=== PATIENT | female | born 1965 | race Caucasian/White ===

== ENCOUNTER 2018-06-11 09:23 | Emergency (ER) | payer BC ==
[2018-06-11 09:56] LABS: Absolute Lymphocytes (CBC) 1.6 K/uL (0.7-4.9); Absolute Monocytes 0.7 K/uL (0.1-1.3); Absolute Neutrophil 6.7 K/uL (1.8-8.0); Basophils % 0.5 % (0-1.3); Hematocrit 37.5 % (36.0-45.0); Lymphocytes % 17.6 % (15.3-44.8); MPV 6.8 fL (7.6-11.3); Monocytes % 7.4 % (3.3-12.3); RBC Red Blood Cell Count 3.88 M/uL (3.86-4.86)
[2018-06-11] MEDS ORDERED: ASPIRIN 81 MG CHEWABLE TABLET ONE (10:00)
[2018-06-11] MEDS ORDERED: NA CHLORIDE 0.9% 1,000 ML ONE (10:00)
[2018-06-11 10:05] LABS: Protime INR 0.99
[2018-06-11 10:19] LABS: ALT/SGPT 43 U/L (12-78); AST/SGOT 19 U/L (15-37); Alkaline Phosphatase 91 U/L (45-117); BUN Blood Urea Nitrogen 13 mg/dL (7-18); Bicarbonate 28 mmol/L (21-32); Bilirubin Direct 0.2 mg/dL (0-0.2); Bilirubin Total 0.7 mg/dL (0.2-1.0); Glucose Level 112 mg/dL (74-106); Lipase 150 U/L (73-393); Magnesium 2.1 mg/dL (1.8-2.4); NT PRO-BNP 78 pg/mL (<125); Potassium 3.4 mmol/L (3.5-5.1); Protein, Total 7.3 g/dL (6.4-8.2); Sodium Level 140 mmol/L (136-145); Troponin (Emerg Dept Use Only) < 0.02 ng/mL (0.0-0.045)
--- NOTE | 2018-06-11 11:09 | RAD REPORT ---
EXAM DESCRIPTION: RAD - Chest Single View - 06/11/2018 10:02 am CLINICAL HISTORY: CHEST PAIN Chest pain. COMPARISON: No comparisons FINDINGS: Portable technique limits examination quality. The lungs are grossly clear. The heart is normal in size. No displaced fractures. IMPRESSION: No acute intrathoracic process suspected.
--- NOTE | 2018-06-11 11:13 | RAD REPORT ---
EXAM DESCRIPTION: CT - Chest For Pe Angio - 06/11/2018 10:55 am CLINICAL HISTORY: Chest pain. CHEST PAIN COMPARISON: No comparisons TECHNIQUE: CT angiogram of the pulmonary arteries was performed with MIP. All CT scans are performed using dose optimization technique as appropriate and may include automated exposure control or mA/KV adjustment according to patient size. FINDINGS: No evidence of pulmonary thromboembolism. No acute aortic finding demonstrated. Mild linear subsegmental atelectasis is present in both posterior lung bases. The lungs are otherwise clear. No significant pericardial or pleural fluid. No concerning bony finding. IMPRESSION: No evidence of pulmonary thromboembolism. No acute lung findings.
[2018-06-11] MEDS ORDERED: POTASSIUM 25 MEQ EFFERV TAB ONE (11:17)
--- NOTE | 2018-06-11 12:55 | ER ---
Nurse's Notes [facility] Name: Alyse Cho Age: 52 yrs Sex: Female : 1965 Arrival Date: 06/11/2018 Time: 09:25 Bed 14 Private MD: Roscoe Wadsworth B Diagnosis: Pleurisy;Chest pain, unspecified;Atelectasis;Hypokalemia Presentation: 06/11 09:27 Presenting complaint: Patient states: chest pain that woke her up around 0100 today. Pt aa5 c/o substernal chest pain and posterior chest pain. Pt states "i just don't want to take a deep breath because it hurts". Pt denies N/V. 09:27 Method Of Arrival: Ambulatory aa5 09:27 Transition of care: patient was not received from another setting of care. Onset of aa5 symptoms was June 11, 2018. Risk Assessment: Do you want to hurt yourself or someone else? Patient reports no desire to harm self or others. Initial Sepsis Screen: Does the patient meet any 2 criteria? No. Patient's initial sepsis screen is negative. Does the patient have a suspected source of infection? No. Patient's initial sepsis screen is negative. Care prior to arrival: None. 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 - Social history:: Smoking status: Patient/guardian denies using tobacco. - Ebola Screening: : No symptoms or risks identified at this time. - Family history:: not pertinent. Screenin:30 Abuse screen: Denies threats or abuse. Nutritional screening: No deficits noted. aa5 Tuberculosis screening: No symptoms or risk factors identified. Fall Risk None identified. Assessment: 09:30 General: Appears comfortable, Behavior is calm, cooperative. Pain: Complains of pain in aa5 mid-sternal area and posterior chest Pain does not radiate. Pain currently is 2 out of 10 on a pain scale. Quality of pain is described as pressure, Pain began today around 0100 Is continuous. Neuro: Level of Consciousness is awake, alert, obeys commands, Oriented to person, place, time, situation. Cardiovascular: Heart tones S1 S2 present Rhythm is regular. Respiratory: Airway is patent Respiratory effort is even, unlabored, Respiratory pattern is regular, symmetrical, Breath sounds are clear bilaterally. Denies cough, shortness of breath. GI: Patient currently denies nausea, vomiting. : No signs and/or symptoms were reported regarding the genitourinary system. EENT: No signs and/or symptoms were reported regarding the EENT system. Derm: Skin is pink, warm \\T\\ dry. Musculoskeletal: Range of motion: intact in all extremities. 09:54 Reassessment: Patient and/or family updated on plan of care and expected duration. Pain aa5 level reassessed. Patient is alert, oriented x 3, equal unlabored respirations, skin warm/dry/pink. Pt notified of wait time for lab and x-ray results. Pt sitting up in bed watching TV. Bed in low position, side rail x 1, and call peoples within reach . 11:00 Reassessment: Patient and/or family updated on plan of care and expected duration. Pain ls4 level reassessed. Patient is alert, oriented x 3, equal unlabored respirations, skin warm/dry/pink. 12:00 Reassessment: Patient and/or family updated on plan of care and expected duration. Pain ls4 level reassessed. Patient is alert, oriented x 3, equal unlabored respirations, skin warm/dry/pink. 12:53 Reassessment: Patient and/or family updated on plan of care and expected duration. Pain ls4 level reassessed. Patient is alert, oriented x 3, equal unlabored respirations, skin warm/dry/pink. Patient states symptoms have improved. Vital Signs: 09:30 BP 140 / 86; Pulse 85; Resp 16 S; Temp 98.4(TE); Pulse Ox 98% on R/A; Weight 83.46 kg aa5 (R); Height 5 ft. 3 in. (160.02 cm) (R); Pain 2/10; 11:11 BP 136 / 82; Pulse 84; Resp 16; Pulse Ox 99% on R/A; Pain 2/10; ls4 12:51 BP 125 / 89; Pulse 70; Resp 16; Temp 98.4(O); Pulse Ox 99% on R/A; Pain 2/10; ls4 09:30 Body Mass Index 32.59 (83.46 kg, 160.02 cm) aa5 ED Course: 09:25 Patient arrived in ED. mr 09:25 Roscoe Wadsworth MD is Private Physician. mr 09:28 Arm band placed on. aa5 09:28 Patient placed in an exam room, on a stretcher. aa5 09:28 Patient has correct armband on for positive identification. Placed in gown. Bed in low aa5 position. Call light in reach. Side rails up X2. youth nutritional monitor on. Pulse ox on. NIBP on. 09:30 Triage completed. aa5 09:32 Yulissa Martinez RN is Primary Nurse. aa5 09:36 Gilbert Walsh MD is Attending Physician. jenni 09:36 No provider procedures requiring assistance completed. Patient maintains SpO2 aa5 saturation greater than 95% on room air. 09:42 Radiology exam delayed due to lab results not completed at this time. (BUN/Creatinine). mw3 09:45 Initial lab(s) drawn, by mi, sent to lab. Inserted saline lock: 20 gauge in left aa5 antecubital area, using aseptic technique. Blood collected. 09:51 Urine collected: clean catch specimen, clear, EKG done, by ED staff, reviewed by Gilbert Walsh MD. 09:51 Urine Culture Sent. [facility] 09:57 Report given to SUMIT Holbrook. aa5 10:03 XRAY Chest (1 view) In Process Unspecified. EDMS 10:53 CT completed. Patient tolerated procedure well. Patient moved back from CT. mw3 10:56 CT Chest For PE Angio In Process Unspecified. EDMS 12:54 Roscoe Wadsworth MD is Referral Physician. jenni 13:36 IV discontinued, intact, bleeding controlled, No redness/swelling at site. Pressure iw dressing applied. Administered Medications: 09:53 Drug: Aspirin Chewable Tablet 324 mg Route: PO; aa5 10:15 Follow up: Response: No adverse reaction ls4 09:54 Drug: NS 0.9% 1000 ml Route: IV; Rate: 1 bolus; Site: left antecubital; aa5 11:00 Follow up: IV Status: Completed infusion; IV Intake: 1000ml ls4 11:13 Drug: Potassium Effervescent Tablet 25 mEq Route: PO; ls4 12:54 Follow up: Response: No adverse reaction; No change in condition ls4 Intake: 11:00 IV: 1000ml; Total: 1000ml. ls4 Outcome: 12:54 Discharge ordered by MD. arteaga 13:35 Discharged to home ambulatory. iw 13:35 Condition: good 13:35 Discharge instructions given to patient, Instructed on discharge instructions, follow up and referral plans. medication usage, Demonstrated understanding of instructions, follow-up care, medications, Prescriptions given X 3. 13:36 Patient left the ED. iw Signatures: Dispatcher [employer] Gilbert Chang MD MD cha Rivera, Mary mr Williams, Irene, RN RN iw Yulissa Martinez RN RN aa5 Smitha Hernández Michelle 3 Sheron Davis RN RN ls4
--- NOTE | 2018-06-11 12:55 | EDPHYS ---
Physician Documentation [facility] Name: Alyse Cho Age: 52 yrs Sex: Female : 1965 Arrival Date: 06/11/2018 Time: 09:25 Bed 14 Private MD: Roscoe Wadsworth B ED Physician Gilbert Walsh HPI: 06/11 11:17 This 52 yrs old Female presents to ER via Ambulatory with complaints of Chest jenni Pain. 11:17 The patient or guardian reports chest pain that is located primarily in the anterior jenni chest wall, left lateral posterior chest, right lateral posterior chest, right breast and left breast. Onset: 10 hour(s) ago. The pain radiates to Associated signs and symptoms: The patient has no apparent associated signs or symptoms. The chest pain is described as sharp. Modifying factors: The symptoms are alleviated by remaining still, rest, the symptoms are aggravated by deep breath. Severity of pain: At its worst the pain was moderate in the emergency department the pain has improved moderately. The patient has not experienced similar symptoms in the past. 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 - Social history:: Smoking status: Patient/guardian denies using tobacco. - Ebola Screening: : No symptoms or risks identified at this time. - Family history:: not pertinent. ROS: 11:17 Constitutional: Negative for fever, chills, and weight loss, Eyes: Negative for injury, jenni pain, redness, and discharge, ENT: Negative for injury, pain, and discharge, Neck: Negative for injury, pain, and swelling, Abdomen/GI: Negative for abdominal pain, nausea, vomiting, diarrhea, and constipation, Back: Negative for injury and pain, : Negative for injury, bleeding, discharge, and swelling, MS/Extremity: Negative for injury and deformity, Skin: Negative for injury, rash, and discoloration, Neuro: Negative for headache, weakness, numbness, tingling, and seizure, Psych: Negative for depression, anxiety, suicide ideation, homicidal ideation, and hallucinations, Allergy/Immunology: Negative for hives, rash, and allergies, Endocrine: Negative for neck swelling, polydipsia, polyuria, polyphagia, and marked weight changes, Hematologic/Lymphatic: Negative for swollen nodes, abnormal bleeding, and unusual bruising. 11:17 Cardiovascular: Positive for chest pain. 11:17 Respiratory: Positive for pleurisy, of the back and chest. Exam: 11:17 Constitutional: This is a well developed, well nourished patient who is awake, alert, jenni and in no acute distress. Head/Face: Normocephalic, atraumatic. Eyes: Pupils equal round and reactive to light, extra-ocular motions intact. Lids and lashes normal. Conjunctiva and sclera are non-icteric and not injected. Cornea within normal limits. Periorbital areas with no swelling, redness, or edema. ENT: Nares patent. No nasal discharge, no septal abnormalities noted. Tympanic membranes are normal and external auditory canals are clear. Oropharynx with no redness, swelling, or masses, exudates, or evidence of obstruction, uvula midline. Mucous membranes moist. Neck: Trachea midline, no thyromegaly or masses palpated, and no cervical lymphadenopathy. Supple, full range of motion without nuchal rigidity, or vertebral point tenderness. No Meningismus. Chest/axilla: Normal chest wall appearance and motion. Nontender with no deformity. No lesions are appreciated. Cardiovascular: Regular rate and rhythm with a normal S1 and S2. No gallops, murmurs, or rubs. Normal PMI, no JVD. No pulse deficits. Abdomen/GI: Soft, non-tender, with normal bowel sounds. No distension or tympany. No guarding or rebound. No evidence of tenderness throughout. Back: No spinal tenderness. No costovertebral tenderness. Full range of motion. Skin: Warm, dry with normal turgor. Normal color with no rashes, no lesions, and no evidence of cellulitis. MS/ Extremity: Pulses equal, no cyanosis. Neurovascular intact. Full, normal range of motion. Neuro: Awake and alert, GCS 15, oriented to person, place, time, and situation. Cranial nerves II-XII grossly intact. Motor strength 5/5 in all extremities. Sensory grossly intact. Cerebellar exam normal. Normal gait. 11:17 Respiratory: the patient does not display signs of respiratory distress, Respirations: normal, Breath sounds: are clear throughout, Respiratory rate: 16 Vital Signs: 09:30 BP 140 / 86; Pulse 85; Resp 16 S; Temp 98.4(TE); Pulse Ox 98% on R/A; Weight 83.46 kg aa5 (R); Height 5 ft. 3 in. (160.02 cm) (R); Pain 2/10; 11:11 BP 136 / 82; Pulse 84; Resp 16; Pulse Ox 99% on R/A; Pain 2/10; ls4 12:51 BP 125 / 89; Pulse 70; Resp 16; Temp 98.4(O); Pulse Ox 99% on R/A; Pain 2/10; ls4 09:30 Body Mass Index 32.59 (83.46 kg, 160.02 cm) aa5 MDM: 09:36 Patient medically screened. [facility] 11:17 Data reviewed: vital signs, nurses notes, lab test result(s), EKG, radiologic studies, [facility] CT scan, plain films. 06/11 09:38 Order name: Basic Metabolic Panel; Complete Time: 10:50 [facility] 06/11 09:38 Order name: CBC with Diff; Complete Time: 10:06 [facility] 06/11 09:38 Order name: LFT's; Complete Time: 10:50 [facility] 06/11 09:38 Order name: Magnesium; Complete Time: 10:50 [facility] 06/11 09:38 Order name: NT PRO-BNP; Complete Time: 10:50 [facility] 06/11 09:38 Order name: PT-INR; Complete Time: 10:50 [facility] 06/11 09:38 Order name: Troponin (emerg Dept Use Only); Complete Time: 10:50 [facility] 06/11 09:38 Order name: XRAY Chest (1 view); Complete Time: 11:15 [facility] 06/11 09:38 Order name: Lipase; Complete Time: 10:50 [facility] 06/11 09:38 Order name: CT Chest For PE Angio; Complete Time: 11:15 [facility] 06/11 09:38 Order name: Urine Culture [facility] 06/11 09:52 Order name: Urine Dipstick--Ancillary (enter results) 06/11 09:52 Order name: Urine --Ancillary (enter results) 06/11 11:17 Order name: Troponin (emerg Dept Use Only): 1130am; Complete Time: 12:53 [facility] 06/11 09:38 Order name: EKG; Complete Time: 09:39 [facility] 06/11 09:38 Order name: Cardiac monitoring; Complete Time: 09:47 [facility] 06/11 09:38 Order name: EKG - Nurse/Tech; Complete Time: 09:47 [facility] 06/11 09:38 Order name: IV Saline Lock; Complete Time: 09:47 [facility] 06/11 09:38 Order name: Labs collected and sent; Complete Time: 09:47 [facility] 06/11 09:38 Order name: O2 Per Protocol; Complete Time: 09:47 [facility] 06/11 09:38 Order name: O2 Sat Monitoring; Complete Time: 09:47 [facility] 06/11 09:38 Order name: Urine Dipstick-Ancillary (obtain specimen); Complete Time: 09:47 [facility] 06/11 11:17 Order name: INCENTIVE SPIROMETRY [facility] 06/11 12:04 Order name: EKG; Complete Time: 12:05 [facility] 06/11 12:04 Order name: EKG - Nurse/Tech; Complete Time: 12:54 [facility] Administered Medications: 09:53 Drug: Aspirin Chewable Tablet 324 mg Route: PO; aa5 10:15 Follow up: Response: No adverse reaction ls4 09:54 Drug: NS 0.9% 1000 ml Route: IV; Rate: 1 bolus; Site: left antecubital; aa5 11:00 Follow up: IV Status: Completed infusion; IV Intake: 1000ml ls4 11:13 Drug: Potassium Effervescent Tablet 25 mEq Route: PO; ls4 12:54 Follow up: Response: No adverse reaction; No change in condition ls4 Disposition: 06/11/18 12:54 Discharged to Home. Impression: Pleurisy, Chest pain, unspecified, Atelectasis, Hypokalemia. - Condition is Stable. - Discharge Instructions: Atelectasis, Adult, Nonspecific Chest Pain, Potassium Content of Foods, Pleurisy, Nonspecific Chest Pain, [id number], Aspirin and Your Heart, Pleurisy, [id number], Hypokalemia. - Prescriptions for Tylenol- Codeine #3 300-30 mg Oral Tablet - take 2 tablet by ORAL route every 6 hours As needed; 30 tablet. Medrol (Vinicio) 4 mg Oral Tablets, Dose Pack - take 1 tablet by ORAL route as directed - follow package instructions; 1 packet. Motrin IB 200 mg Oral Tablet - take 2 tablet by ORAL route every 6 hours As needed as needed with food; 30 tablet. - Medication Reconciliation Form, Thank You Letter, Antibiotic Education, Prescription Opioid Use form. - Follow up: Roscoe Wadsworth; When: 2 - 3 days; Reason: Recheck today's complaints, Continuance of care, Re-evaluation by your physician. - Problem is new. - Symptoms have improved. Signatures: Dispatcher [employer] EDMS Gilbert Walsh MD MD cha Williams, Irene RN RN Yulissa Bustillos RN RN aa5 Sheron Davis RN RN ls4 Corrections: (The following items were deleted from the chart) 13:36 12:54 06/11/2018 12:54 Discharged to Home. Impression: Pleurisy; Chest pain, iw unspecified; Atelectasis; Hypokalemia. Condition is Stable. Discharge Instructions: Nonspecific Chest Pain, Pleurisy, Nonspecific Chest Pain, [id number], Aspirin and Your Heart, Pleurisy, [id number], Atelectasis, Adult. Prescriptions for Tylenol-Codeine #3 300-30 mg Oral Tablet - take 2 tablet by ORAL route every 6 hours As needed; 30 tablet, Medrol (Vinicio) 4 mg Oral Tablets, Dose Pack - take 1 tablet by ORAL route as directed - follow package instructions; 1 packet, Motrin IB 200 mg Oral Tablet - take 2 tablet by ORAL route every 6 hours As needed as needed with food; 30 tablet. and Forms are Medication Reconciliation Form, Thank You Letter, Antibiotic Education, Prescription Opioid Use. Follow up: Roscoe Wadsworth; When: 2 - 3 days; Reason: Recheck today's complaints, Continuance of care, Re-evaluation by your physician. Problem is new. Symptoms have improved. jenni
[2018-06-11 14:22] LABS: Urine Blood 1+ (NEG); Urine Glucose NEGATIVE (NEG); Urine Protein NEGATIVE (NEG)
--- NOTE | 2018-06-12 07:23 | EKG ---
Test Date: 2018-06-11 Test Time: 12:11:44 Systems Accountant: COLE MEASUREMENT RESULTS: Intervals: Rate: 69 HI: 158 QRSD: 102 QT: 396 QTc: 424 [place]: P: 47 HI: 158 QRS: 22 T: 38 INTERPRETIVE STATEMENTS: Normal sinus rhythm Normal ECG Compared to ECG 06/11/2018 09:39:55 Sinus arrhythmia no longer present Electronically Signed On 06-12-18 07:18:41 PERSONAL CARE SERVICE PROVIDER by Indio [place]
--- NOTE | 2018-06-12 07:24 | EKG ---
Test Date: 2018-06-11 Test Time: 09:39:55 Registered Nurse Bone Marrow Transplant: COLE MEASUREMENT RESULTS: Intervals: Rate: 73 FL: 160 QRSD: 102 QT: 382 QTc: 420 [place]: P: 59 FL: 160 QRS: 26 T: 47 INTERPRETIVE STATEMENTS: Normal sinus rhythm with sinus arrhythmia Normal ECG No previous ECG available for comparison Electronically Signed On 06-12-18 07:21:14 CONCRETE ENGINEERING TECHNICIAN by Indio [place]
== END 2018-06-11 13:36 | disposition home or self-care (01) ==
LOC: ER 09:23
DX: R09.1 Pleurisy (principal); J98.11 Atelectasis; E87.6 Hypokalemia; I10 Essential (primary) hypertension
CPT/HCPCS: 36415; 71045; 71275; 80048; 80076; 81003; 81025; 83690; 83735; 83880; 84484; 85025; 85610; 87086; 87088; 93005; 96360; 99285; J7030; Q9967